=== PATIENT | male | born 1985 | race Caucasian/White ===

== ENCOUNTER 2024-04-08 14:48 | Outpatient (AMB) | payer OTHER, SELFPAY ==
--- NOTE | 2024-04-08 15:04 | MHC.PC.OV ---
Vital Signs 04/08/24 15:09 04/08/24 15:14 Height 6 ft 0.48 in Weight 202 lb BMI 27.0 BP 142/82 H 140/82 H Blood Pressure Location Rt brachial Lt brachial Position Sitting Sitting Pulse 63 Pulse Source Pulse Oximeter Temp 97.8 F Temp Source Oral Pulse Oximetry (%) 98 Oxygen Delivery Method Room Air Intake Visit Reasons: npv Intake Note: New patient visit Furnace Loader Required: No Allergies No Known Allergies Allergy (Verified 04/08/24 15:04) Medication List - Last Reconciled 04/08/24 by Emily Jamil PA-C allopurinol 200 mg PO DAILY cetirizine (Zyrtec) 10 mg PO DAILY PRN levocetirizine (Xyzal) 5 mg PO DAILY Tobacco use date assessed: 04/08/24 Dental Screening Dental Screen Date: 04/08/24 Did you have a dental visit in the last 12 months?: Yes Did you have a dental problem in the last 6 months where you did not have access to dental care?: No Was dental information given to patient?: Patient has dentist HPI npv HPI Details Patient is a 38-year-old male with a significant past medical history of gout, asthma, environmental allergies, and generalized anxiety disorder. His blood pressure today is elevated today. He states that he has a history of white coat hypertension but a couple weeks ago at the [facility] treatment center his blood pressure was normal. It was less than 120/80. Psych: States that his anxiety is usually well managed with coping mechanisms. In the past was on Zoloft but has not needed this. Rheum: Follows with the [facility] treatment [facility] for management of gout. Continues on allopurinol. -has a hx of tick bites. Family history: Mother hypertension, father ulcerative colitis, brother alcoholism [facility] Medical History (Updated 04/08/24 @ 15:24 by Emily Jamil PA-C) Generalized anxiety disorder Seasonal allergies Asthma, mild intermittent, well-controlled Environmental allergies Mild persistent asthma in adult without complication Gout Family History (Updated 04/08/24 @ 15:20 by Reanna Chakraborty CMA) Mother Asthma Maternal Grandmother Lymphoma Social History Housing: House Patient Tobacco Use Status: Former Tobacco user Years Smoked: 2 e-Cigarette/Vaping Use: Never Used Second Hand Smoke Exposure: Yes (past) service: No Current occupational status: employed 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 1. Little interest or pleasure in doing things: not at all 2. Feeling down, depressed, or hopeless: not at all 3. Trouble falling or staying asleep, or sleeping too much: not at all 4. Feeling tired or having little energy: several days 5. Poor appetite or overeating: not at all 6. Feeling bad about yourself - or that you are a failure or have let yourself or your family down: not at all 7. Trouble concentrating on things, such as reading the newspaper or watching television: not at all 8. Moving or speaking so slowly that other people could have noticed. Or the opposite - being so fidgety or restless that you have been moving around a lot more than usual: not at all 9. Thoughts that you would be better off or of hurting yourself in some way: not at all Total score: 1 Depression Screening Interpretation: Negative Depression Screening Done: Yes 17768 - PHQ-9 Billing: Yes Source: Developed by Drs. Michael Hood, Waleska Oropeza, Manjeet Bustillos and colleagues, with an educational yesenia from [employer]. Thrive Questionnaire Date Thrive assessed: 04/08/24 I am a: Patient What is your living situation today?: I have a steady place to live Within the past 12 months, did the food you bought not last and you didn't have the money to get more?: Never true Within the past 12 months, did you worry whether your food would run out before you got money to buy more?: Never true Do you have trouble paying for medicines?: No Do you have trouble getting transportation to medical appointments?: No Do you have trouble paying your heating and electricity bill?: No Do you have trouble taking care of your child, family member or friend?: No Do you have trouble with day-to-day activities such as bathing, preparing meals, shopping, managing finances, etc.?: No Are you currently unemployed and looking for a job?: No Are you interested in more education?: No Please select the resources that you would like help with: None Currently or been in a relationship where the following occur: No concerns reported THRIVE Score: 0 AUDIT C Alcohol Use Questionnaire (AUDIT-C) 1. How often do you have a drink containing alcohol?: 2-3 times a week 2. How many drinks containing alcohol do you have on a typical day when you are drinking?: 3 or 4 3. How often do you have six or more drinks on one occasion?: Less than monthly Total Score: 5 FREDI-7 AMB Questionnaire FREDI-7 Date FREDI - 7 assessed: 04/08/24 Feeling nervous, anxious, or on edge: 0 = Not at all Not being able to stop or control worryin = Not at all Worrying too much about different things: 0 = Not at all Trouble relaxin = Several days Being so restless that it is hard to sit still: 0 = Not at all Becoming easily annoyed or irritable: 0 = Not at all Feeling afraid as if something awful might happen: 0 = Not at all Total FREDI-7 score (0-4 normal; 5-9 mild; 10-14 moderate; 15-21 severe): 1 Source: Developed by Drs. Michael Hood, Waleska Oropeza, Manjeet Bustillos and colleagues, with an educational yesenia from [employer]. FREDI-7 Assessment Billing FREDI-7 Assessment Tool: FREDI-7 Assessment 13004 Physical exam (Primary Care) Depression Screening Interpretation: Negative Currently or been in a relationship where the following occur: No concerns reported Const Orientation/consciousness: patient oriented x3 HENMT Ears: hearing grossly normal bilaterally Neck Thyroid: Thyroid normal Lymphatic: no lymphadenopathy noted Resp Auscultation: clear to auscultation bilaterally Cardio Rate: regular rate Rhythm: regular rhythm Heart sounds: S1 normal heart sound present and S2 normal heart sound present GI Inspection: Yes normal to inspection Palpation (GI): Soft to palpation and Other GI palpation findings present (nontender, no cva tenderness) Auscultation: normoactive bowel sounds Rectal Exam - Male: Yes deferred Skin General skin exam: no rashes or lesions noted Neuro General: patient oriented x3, gait normal and no focal motor deficits Assessment and Plan Assessment & Plan (1) Routine general health check-up of defined subpopulation: Code(s): Z00.8 - Encounter for other general examination Plan: Health maintenance reviewed. Labs ordered today. (2) Gout: Code(s): M10.9 - Gout, unspecified Qualifiers: Chronicity: unspecified Encounter type: initial encounter Gout site: unspecified site Plan: Currently well-controlled following with the arthritis treatment center (3) Mild persistent asthma in adult without complication: Code(s): J45.30 - Mild persistent asthma, uncomplicated Plan: Well-controlled (4) Generalized anxiety disorder: Code(s): F41.1 - Generalized anxiety disorder Plan: Currently well-controlled. we did discuss his life stressors and if it flares ? starting straterra or buspar. (5) Elevated blood pressure reading in office with diagnosis of hypertension: Code(s): I10 - Essential (primary) hypertension Plan: will monitor at home and f/u if elevated Orders: Orders Comprehensive [place]. Panel Fast Today F41.1 - Generalized anxiety disorder, J45.30 - Mild persistent asthma, uncomplicated, Z13.220 - Encounter for screening for lipoid disorders Lipid Panel Today F41.1 - Generalized anxiety disorder, J45.30 - Mild persistent asthma, uncomplicated, Z13.220 - Encounter for screening for lipoid disorders TSH reflex Free T4 Today F41.1 - Generalized anxiety disorder, J45.30 - Mild persistent asthma, uncomplicated, Z13.220 - Encounter for screening for lipoid disorders Lyme IgG/IgM w/reflex to WB Today W57.XXXA - Bitten or stung by nonvenomous insect and other nonvenomous arthropods, initial encounter Medications: New albuterol sulfate 90 mcg/actuation 2 puffs inhalation Q4-6H PRN 8.5 grams 2RF shortness of breath or wheezing montelukast (Singulair) 10 mg PO DAILY 90 tabs 3RF Coding Level of Care Code Est Pt Prev Care 18-39y(77716) Diagnoses Routine general health check-up of defined subpopulation Z00.8 Gout M10.9 Chronicity: unspecified Encounter type: initial encounter Gout site: unspecified site Mild persistent asthma in adult without complication J45.30 Generalized anxiety disorder F41.1 Elevated blood pressure reading in office with diagnosis of hypertension I10 Additional Codes FREDI-7 Assessment Billing - FREDI-7 Assessment Tool: FREDI-7 Assessment 96760 ([id number])
[2024-04-08 15:09] VITALS: BP 142/82; PULSE 63; TEMP 36.6; O2SAT 98; BMI 27.0
[2024-04-08 15:14] VITALS: BP 140/82
== END 2024-04-08 15:42 | disposition home or self-care (01) ==
PROVIDERS: PCP Internal Medicine; Visit Provider Physician Assistant
DX: Z00.00 Encounter for general adult medical examination without abnormal findings (principal); J45.30 Mild persistent asthma, uncomplicated; M10.9 Gout, unspecified; F41.1 Generalized anxiety disorder; I10 Essential (primary) hypertension
CPT/HCPCS: 99395

== ENCOUNTER 2024-04-16 10:20 | Outpatient (REF) | payer OTHER, SELFPAY ==
[2024-04-16 13:27] LABS: D Dimer High Sensitivity < 150 NG/ML
== END 2024-04-16 10:21 | disposition home or self-care (01) ==
LOC: HO.HMGCLDS 10:20
PROVIDERS: PCP Physician Assistant; Visit Provider Internal Medicine
DX: R07.9 Chest pain, unspecified (principal)
CPT/HCPCS: 36415; 85379

== ENCOUNTER 2024-11-22 21:35 | Emergency (ER) | payer OTHER, SELFPAY ==
[2024-11-22 21:51] VITALS: BP 140/77; PULSE 68; RESP 16; TEMP 36.7; O2SAT 95; BMI 25.1
[2024-11-23 02:04] VITALS: BP 129/75; PULSE 65; RESP 14; TEMP 36.4; O2SAT 98
--- OUTSIDE RECORDS SUMMARY | 2024-11-23 02:24 | XMS_ITS | Clinical Summary ---
Author Organization [facility] Address [address] [place] [address] Care Team Providers Care Hand Etcher Helper Name Role Phone Geoffrey Felton MD Primary Care Provider Allergies No known active allergies Medications Medication Sig Dispensed Refills Start Date End Date Status Cetirizine HCl (ZYRTEC PO) Take by mouth. Active Multiple Vitamin (multivitamin) capsule Take 1 capsule by mouth daily. Active Active Problems No known active problems Social History Tobacco Use Types Packs/Day Years Used Date Smoking Tobacco: Never Smokeless Tobacco: Never Sex and Gender Information Value Date Recorded Sex Assigned at Not on file Gender Identity Not on file Sexual Orientation Not on file Last Filed Vital Signs Vital Sign Reading Time Taken Comments Blood Pressure - - Pulse - - Temperature 37.3 ??C (99.1 ??F) 02/08/2022 12:50 PM E DT Respiratory Rate - - Oxygen Saturation - - Inhaled Oxygen Concentration - - Weight 81.6 kg (180 lb) 02/08/2022 12:50 PM EDT Height 188 cm (6' 2 ) 02/08/2022 12:50 PM EDT Body Mass Index 23.11 02/08/2022 12:50 PM EDT Plan of Treatment Health Maintenance Due Date Last Done Comments Hepatitis C Virus Screening 1987 HIV Screening 2000 DTaP/Tdap/Td Vaccines (1 - Tdap) 2006 Hepatitis B Vaccines (1 of 3 - 19+ 3-dose series) 2006 Influenza Vaccine 04/15/2024 COVID-19 Vaccine ( - 2023-2 5 season) 2024 HPV Vaccines Aged Out No longer eligi ble based on patient's age to complete this topic Pneumococcal Vaccine: Pediat heather (0-5 Years) and At-Risk Patients (6 to 49 Years) Aged Out No longer eligible b ased on patient's age to complete this topic Care Teams Hand Etcher Helper Relationship Specialty Start Date End Date Geoffrey Felton MD [address] [place] [id number] PCP - General 08/15/21
--- NOTE | 2024-11-23 03:00 | ED_ITS ---
HPI - General Adult General Chief complaint: General Medical Stated complaint: ?scratched by a bat Time Seen by Provider: 11/23/24 02:59 Source: patient Limitations: no limitations History of Present Illness ED Provider: Carla Enriquez PA-C HPI narrative: 39-year-old otherwise healthy male presents after encounter with the bat. Patient states there was a bat in his home, he came in physical contact with the bat while trying to remove it from his house. There was no bite or scratch, but he did physically touched the animal. Related Data Home Medications ?Medication ?Instructions ?Recorded ?Confirmed allopurinol 100 mg tablet 200 mg PO DAILY 04/08/24 04/08/24 cetirizine 10 mg capsule (Zyrtec) 10 mg PO DAILY PRN 04/08/24 04/08/24 levocetirizine 5 mg tablet (Xyzal) 5 mg PO DAILY 04/08/24 04/08/24 Previous Rx's ?Medication ?Instructions ?Recorded albuterol sulfate 90 mcg/actuation 2 puff inhalation Q4-6H PRN 04/08/24 aerosol inhaler shortness of breath or wheezing #8.5 grams montelukast 10 mg tablet 10 mg PO DAILY #90 tabs 04/08/24 (Singulair) indomethacin 50 mg capsule 50 mg PO TID PRN pain 30 days #90 10/28/24 caps Allergies Allergy/AdvReac Type Severity Reaction Status Date / Time environmental allergies Allergy Hives Verified 11/22/24 21:55 Review of Systems Review of Systems: Yes all other systems are reviewed and are negative Constitutional: Constitutional: Denies fatigue and Denies fever(s) Endocrine: Endocrine: Denies fatigue PMFSH Past Medical History Attestation statement: The following information was validated with the patient. Medical History (Updated 11/23/24 @ 03:21 by DEION Burt) Generalized anxiety disorder Seasonal allergies Asthma, mild intermittent, well-controlled Environmental allergies Mild persistent asthma in adult without complication Gout Family History Family History (Updated 04/08/24 @ 15:20 by Reanna Chakraborty CMA) Mother Asthma Maternal Grandmother Lymphoma Social History Social History (Updated 04/08/24 @ 15:13 by Reanna Chakraborty CMA) Housing: House Patient Tobacco Use Status: Former Tobacco user Years Smoked: 2 Smoked in Last 30 Days: No e-Cigarette/Vaping Use: Never Used Second Hand Smoke Exposure: Yes (past) Use of substances other than those prescribed or required for medical reasons: No Advance Directives: No Advance Directives Information Provided: Yes Do you have a plan to hurt others: No Plan service: No Current occupational status: employed 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 Current occupational exposures/hazards: No Cognitive needs: No Hearing needs: No Vision needs: No Physical Exam ED Vital Signs: Vital Signs - 24 hr 11/22/24 21:51 11/23/24 02:04 Temperature 98.0 F 97.5 F Pulse Rate 68 65 Respiratory Rate 16 14 Blood Pressure 140/77 H 129/75 Pulse Oximetry 95 98 Oxygen Delivery Method Room Air Room Air BMI result Body Mass Index 25.1 Const Other: Alert Orientation/consciousness: patient oriented x3 Resp Effort & Inspection: normal respiratory effort Cardio Other: Normal peripheral perfusion Skin Other: Warm dry no rash Neuro General: patient oriented x3, gait normal, no focal motor deficits and CN's II- XI intact bilaterally Psych Other: Cooperative Medical Decision Making Medical Decision Making MDM Narrative: 39-year-old otherwise healthy male presents after encounter with the bat. Patient states there was a bat in his home, he came in physical contact with the bat while trying to remove it from his house. There was no bite or scratch, but he did physically touched the animal. No chronic issues History: Per patient I have considered the following differential diagnoses: Bite wound, scratch, close proximity to a bat Plan: There was no break in the skin, however the patient would like post exposure prophylaxis. We will initiate the vaccine series and order the immunoglobulin. I have let the community cultural development officer know, she was orchestrated the patient's outpatient follow up with the infusion center. The patient will have the appropriate discharge instructions as well. I have ordered his subsequent vaccines within our system. Discharge Plan Discharge Clinical Impression: Encounter for prophylactic administration of rabies immune globulin Patient Disposition: Home, Self-Care Additional Instructions: Rabies follow up with the [facility] Infusion Center: Upon discharge from the ED today, you will be contacted by the Infusion Center to schedule your follow up Rabies vaccines. You will need a total of 3 more injections. If for some reason you do not receive a call, please call the Infusion Center directly at [phone]. Follow up with your primary care provider after completion of the vaccine to have a titer drawn to ensure the vaccines effectiveness. Prescriptions: No Action indomethacin 50 mg capsule 50 mg PO TID PRN (Reason: pain) 30 Days Qty: 90 2RF Rx Instructions: administer with food or milk Zyrtec 10 mg capsule 10 mg PO DAILY PRN levocetirizine [Xyzal] 5 mg tablet 5 mg PO DAILY allopurinol 100 mg tablet 200 mg PO DAILY albuterol sulfate 90 mcg/actuation HFA aerosol inhaler 2 puff inhalation Q4-6H PRN (Reason: shortness of breath or wheezing) Qty: 8.5 2RF montelukast [Singulair] 10 mg tablet 10 mg PO DAILY Qty: 90 3RF Print Language: Bulgarian
[2024-11-23 06:32] VITALS: BP 128/80; PULSE 55; RESP 14; TEMP 36.9; O2SAT 98
[2024-11-23] MEDS: Rabies Vaccine (PCEC)/PF 1 ML VIAL IM (06:38)
[2024-11-23] MEDS: Rabies Immune Globulin/PF 900 UNIT/3 ML VIAL 1723.66 UNIT IM (06:39)
[2024-11-23 06:49] VITALS: BP 128/80; PULSE 55; RESP 14; TEMP 36.9; O2SAT 98
== END 2024-11-23 06:49 | disposition home or self-care (01) ==
PROVIDERS: Emergency Provider Emergency Medicine; PCP Physician Assistant
DX: Z20.3 Contact with and (suspected) exposure to rabies (principal); Z23 Encounter for immunization
CPT/HCPCS: 90375; 90471; 90675; 96372; 99284

== ENCOUNTER 2024-12-07 14:45 | Outpatient (RCR) | payer OTHER, SELFPAY ==
[2024-11-26 14:52] VITALS: BP 133/78; PULSE 68; RESP 16; TEMP 36.8; O2SAT 98
[2024-11-26] MEDS: Rabies Vaccine (PCEC)/PF 1 ML VIAL IM (14:57)
[2024-11-30 14:49] VITALS: BP 131/74; PULSE 65; RESP 20; TEMP 36.7; O2SAT 98
[2024-11-30] MEDS: Rabies Vaccine (PCEC)/PF 1 ML VIAL IM (14:53)
[2024-12-07 15:06] VITALS: BP 143/74; PULSE 77; RESP 16; TEMP 36.6; O2SAT 97
[2024-12-07] MEDS: Rabies Vaccine (PCEC)/PF 1 ML VIAL IM (15:08)
== END 2024-12-07 15:11 | disposition home or self-care (01) ==
LOC: HO.INF 14:45
PROVIDERS: Visit Provider Physician Assistant Medical
DX: Z20.3 Contact with and (suspected) exposure to rabies (principal)
CPT/HCPCS: 90471; 90675

== ENCOUNTER 2025-04-14 15:28 | Outpatient (AMB) | payer OTHER, SELFPAY ==
--- NOTE | 2025-04-14 15:34 | A.OFFPC_ITS ---
Vital Signs 04/14/25 15:42 Height 6 ft 1 in Weight 204 lb 6 oz BMI 27.0 BP 130/66 Blood Pressure Location Rt brachial Position Sitting Respiration 14 Pulse 72 Pulse Source Pulse Oximeter Temp 97.9 F Temp Source Oral Pulse Oximetry (%) 98 Oxygen Delivery Method Room Air Intake Visit Reasons: CPE Intake Note: Physical [employer] Required: No Allergies environmental allergies Allergy (Verified 11/22/24 21:55) Hives Tobacco use date assessed: 04/14/25 Dental Screening Dental Screen Date: 04/14/25 Did you have a dental visit in the last 12 months?: Yes Did you have a dental problem in the last 6 months where you did not have access to dental care?: No Was dental information given to patient?: Patient has dentist HPI CPE HPI Details Patient is a 39-year-old male with a significant past medical history of mild intermittent asthma, gout, environmental allergies, generalized anxiety presenting today for a physical exam. No acute concerns today. Psych: Anxiety is controlled with lifestyle and coping mechanisms. Has a great support system. He has never been hospitalized for this. Denies any SI/HI. Overall feels happy. Excited about moving into his new house with his children and . PULM: As it is very well-controlled with Singulair. Rarely needs to use albuterol. MSK: Gout is managed with allopurinol. He has indomethacin at home to use if needed for a flare-up. [facility] Medical History (Updated 04/15/25 @ 12:19 by Emily Jamil PA-C) Generalized anxiety disorder Seasonal allergies Asthma, mild intermittent, well-controlled Environmental allergies Mild persistent asthma in adult without complication Gout Family History (Updated 04/08/24 @ 15:20 by Reanna Chakraborty CMA) Mother Asthma Maternal Grandmother Lymphoma Social History (Updated 04/08/24 @ 15:13 by Reanna Chakraborty CMA) Housing: House Patient Tobacco Use Status: Former Tobacco user Years Smoked: 2 e-Cigarette/Vaping Use: Never Used Second Hand Smoke Exposure: Yes (past) service: No Current occupational status: employed 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 1. Little interest or pleasure in doing things: not at all 2. Feeling down, depressed, or hopeless: not at all 3. Trouble falling or staying asleep, or sleeping too much: several days 4. Feeling tired or having little energy: several days 5. Poor appetite or overeating: not at all 6. Feeling bad about yourself - or that you are a failure or have let yourself or your family down: not at all 7. Trouble concentrating on things, such as reading the newspaper or watching television: not at all 8. Moving or speaking so slowly that other people could have noticed. Or the opposite - being so fidgety or restless that you have been moving around a lot more than usual: not at all 9. Thoughts that you would be better off or of hurting yourself in some way: not at all Total score: 2 Depression Screening Interpretation: Negative Depression Screening Done: Yes 54797 - PHQ-9 Billing: Yes Source: Developed by Drs. Michael Hood, Waleska Oropeza, Manjeet Bustillos and colleagues, with an educational yesenia from [employer]. Thrive Questionnaire Date Thrive assessed: 04/08/24 I am a: Patient What is your living situation today?: I have a steady place to live Within the past 12 months, did the food you bought not last and you didn't have the money to get more?: Never true Within the past 12 months, did you worry whether your food would run out before you got money to buy more?: Never true Do you have trouble paying for medicines?: No Do you have trouble getting transportation to medical appointments?: No Do you have trouble paying your heating and electricity bill?: No Do you have trouble taking care of your child, family member or friend?: No Do you have trouble with day-to-day activities such as bathing, preparing meals, shopping, managing finances, etc.?: No Are you currently unemployed and looking for a job?: No Are you interested in more education?: No Please select the resources that you would like help with: None Currently or been in a relationship where the following occur: No concerns reported THRIVE Score: 0 AUDIT C Alcohol Use Questionnaire (AUDIT-C) 1. How often do you have a drink containing alcohol?: 2-3 times a week 2. How many drinks containing alcohol do you have on a typical day when you are drinking?: 3 or 4 3. How often do you have six or more drinks on one occasion?: Less than monthly Total Score: 5 FREDI-7 AMB Questionnaire FREDI-7 Date FREDI - 7 assessed: 04/08/24 Feeling nervous, anxious, or on edge: 1 = Several days Not being able to stop or control worryin = Several days Worrying too much about different things: 1 = Several days Trouble relaxin = Several days Being so restless that it is hard to sit still: 0 = Not at all Becoming easily annoyed or irritable: 1 = Several days Feeling afraid as if something awful might happen: 0 = Not at all Total FREDI-7 score (0-4 normal; 5-9 mild; 10-14 moderate; 15-21 severe): 5 Source: Developed by Drs. Michael Hood, Waleska Oropeza, Manjeet Bustillos and colleagues, with an educational yesenia from [employer]. FREDI-7 Assessment Billing FREDI-7 Assessment Tool: FREDI-7 Assessment 57642 ACT Questionnaire In the past 4 weeks, how much of the time did your asthma keep you from getting as much done at work, school or at home?: None of the time During the past 4 weeks, how often have you had shortness of breath?: 1-2 times a week During the past 4 weeks, how often did your asthma symptoms wake you up at night or earlier than usual in the morning?: Not at all During the past 4 weeks, how often have you had to use your rescue inhaler or nebulizer medication?: Not at all How would you rate your asthma control during the past 4 weeks?: Well controlled ACT Interpretation: Positive Score: 23 Physical exam (Primary Care) Vital Signs: Last Vital Signs Temp 97.9 F 04/14/25 15:42 Pulse 72 04/14/25 15:42 Resp 14 04/14/25 15:42 BP 130/66 04/14/25 15:42 Pulse Ox 98 04/14/25 15:42 Oxygen Delivery Method Room Air 04/14/25 15:42 BMI result Body Mass Index 27.0 Tobacco/Smoking Status: Tobacco use Status Tobacco use date assessed 04/14/25 04/14/25 15:46 Patient Tobacco Use Status Former Tobacco user 04/14/25 15:46 e-Cigarette/Vaping Use Never Used 04/14/25 15:46 PHQ-9: PHQ-9 Score PHQ-9: Total score 2 04/14/25 15:55 Depression Screening Interpretation: Negative Thrive Assessment: Date of Thrive Assessment Date Thrive assessed 04/08/24 04/14/25 15:46 Currently or been in a relationship where the following occur: No concerns reported Const Orientation/consciousness: patient oriented x3 HENMT Ears: hearing grossly normal bilaterally and TM's normal bilaterally General nose exam: No nasal polyps present Face and sinus: Yes sinuses nontender Mouth: Normal oral and palatal mucosa present Eyes Pupils: Equal, round and reactive pupils present EOM: EOMs intact bilaterally Neck Neck: Yes full ROM and Yes no lymphadenopathy Thyroid: Thyroid normal Chest Chest palpation & inspection: normal inspection of the chest Resp Auscultation: clear to auscultation bilaterally Cardio Rate: regular rate Rhythm: regular rhythm Heart sounds: S1 normal heart sound present and S2 normal heart sound present Peripheral pulses: Peripheral pulses 2+ throughout GI Other: Soft, nontender Auscultation: normal bowel sounds Rectal Exam - Male: Yes deferred General: Yes no CVA tenderness Back/Spine/Pelvis Other: Nontender Back: no CVA tenderness Skin General skin exam: no rashes or lesions noted Neuro General: patient oriented x3, gait normal, CN's II-XI intact bilaterally and deep tendon reflexes 2+ bilaterally Cranial nerves: Yes Equal, round and reactive pupils present Motor exam (neuro): 5/5 motor strength present throughout Sensory Exam: double simultaneous stimulation for sensation normal Coordination: [id number] test normal and Romberg test negative Extrem General: Yes normal to inspection and Yes full ROM Psych Affect: normal affect Attitude: cooperative Thought process: Normal thought process present Thought content: Normal thought content present Insight: Good insight present (Psych) Judgement: Good judgement present (Psych) Coding Level of Care Code Est Pt Prev Care [id number]([id number]) Diagnoses Encounter for routine history and physical examination Z00.00 Gout M10.9 Chronicity: unspecified Encounter type: initial encounter Gout site: unspecified site Generalized anxiety disorder F41.1 Additional Codes Asthma Control Questionnaire - ACT Interpretation: Positive ([id number]) FREDI-7 Assessment Billing - FREDI-7 Assessment Tool: FREDI-7 Assessment 83337 ([id number]) PHQ-9 - 23224 - PHQ-9 Billing: Yes ([id number]) Assessment & Plan Assessment & Plan (1) Encounter for routine history and physical examination: Code(s): Z00.00 - Encounter for general adult medical examination without abnormal findings Plan: Health maintenance reviewed. Previous labs reviewed. Labs ordered today. We will follow up pending test results (2) Gout: Code(s): M10.9 - Gout, unspecified Category: Medical Qualifiers: Chronicity: unspecified Encounter type: initial encounter Gout site: unspecified site Plan: Very well-controlled (3) Generalized anxiety disorder: Code(s): F41.1 - Generalized anxiety disorder Category: Medical Plan: Stable. Doing very well. Orders: Orders Comprehensive [place]. Panel Fast 04/14/25 F41.1 - Generalized anxiety disorder, M10.9 - Gout, unspecified, Z00.00 - Encounter for general adult medical examination without abnormal findings, Z01.89 - Encounter for other specified special examinations, Z13.220 - Encounter for screening for lipoid disorders Lipid Panel 04/14/25 F41.1 - Generalized anxiety disorder, M10.9 - Gout, unspecified, Z00.00 - Encounter for general adult medical examination without abnormal findings, Z01.89 - Encounter for other specified special examinations, Z13.220 - Encounter for screening for lipoid disorders UA CC w/rflx Micro + Cult 04/14/25 F41.1 - Generalized anxiety disorder, M10.9 - Gout, unspecified, Z00.00 - Encounter for general adult medical examination without abnormal findings, Z01.89 - Encounter for other specified special examinations, Z13.220 - Encounter for screening for lipoid disorders Microalbumin, Random (w Creat) 04/14/25 F41.1 - Generalized anxiety disorder, M10.9 - Gout, unspecified, Z00.00 - Encounter for general adult medical examination without abnormal findings, Z01.89 - Encounter for other specified special examinations, Z13.220 - Encounter for screening for lipoid disorders Complete Blood Count Auto Diff 04/14/25 F41.1 - Generalized anxiety disorder, M10.9 - Gout, unspecified, Z00.00 - Encounter for general adult medical examination without abnormal findings, Z01.89 - Encounter for other specified special examinations, Z13.220 - Encounter for screening for lipoid disorders TSH reflex Free T4 04/14/25 F41.1 - Generalized anxiety disorder, M10.9 - Gout, unspecified, Z00.00 - Encounter for general adult medical examination without abnormal findings, Z01.89 - Encounter for other specified special examinations, Z13.220 - Encounter for screening for lipoid disorders
--- OUTSIDE RECORDS SUMMARY | 2025-04-14 15:34 | XMS_ITS | Clinical Summary ---
Author Organization [facility] Address [address] [place] [address] Care Team Providers Care Director Mobile Name Role Phone Geoffrey Felton MD Primary Care Provider Unavaila ble Allergies No known active allergies Medications Cetirizine HCl (ZYRTEC PO) Take by mouth. Active Multiple Vitamin (multivitamin) capsule Take 1 capsule by mouth daily. Active Active Problems No known active problems Social History Tobacco Use Types Packs/Day Years Used Date Smoking Tobacco: Never Smokeless Tobacco: Never Sex and Gender Information Value Date Recorded Sex Assigned at Not on file Legal Sex Male 12:24 PM EST Gender Identity Not on file Sexual Orientation Not on file Last Filed Vital Signs Vital Sign Reading Time Taken Comments Blood Pressure - - Pulse - - Temperature 37.3 C (99.1 F) 02/08/2022 12:50 PM EDT Respiratory Rate - - Oxygen Saturation - [...] of 3 - 19+ 3-dose series) 2006 COVID-19 Vaccine (2023-2 5 season) 2024 Influenza Vaccine 04/15/2025 HPV Vaccines Aged Out No longer eligi ble based on patient's age to complete this topic Pneumococcal Vaccine: Pediat heather (0-5 Years) and At-Risk Patients (6 to 49 Years) Aged Out No longer eligible b ased on patient's age to complete this topic Insurance [facility] Care Teams Director Mobile Relationship Specialty Start Date End Date Geoffrey Felton MD PCP - General 08/15/21
[2025-04-14 15:42] VITALS: BP 130/66; PULSE 72; RESP 14; TEMP 36.6; O2SAT 98; BMI 27.0
== END 2025-04-14 15:55 | disposition home or self-care (01) ==
LOC: HO.HMCFM 15:29
PROVIDERS: PCP Physician Assistant; Visit Provider Physician Assistant
DX: Z00.00 Encounter for general adult medical examination without abnormal findings (principal); M10.9 Gout, unspecified; F41.1 Generalized anxiety disorder

== ENCOUNTER → 2025-04-14 15:28 | Outpatient (BNVA) | payer OTHER, SELFPAY | PROVIDERS: PCP Physician Assistant; Visit Provider Physician Assistant | DX: Z00.00 Encounter for general adult medical examination without abnormal findings (principal); J45.20 Mild intermittent asthma, uncomplicated; F41.1 Generalized anxiety disorder; M10.9 Gout, unspecified | CPT/HCPCS: 96127; 96160 ==